=== PATIENT | male | born 1990 | race Caucasian/White ===

== ENCOUNTER 2018-08-01 19:23 | Emergency (ER) | payer MEDICAID ==
[2018-08-01 20:24] LABS: URINE SOURCE CLEAN C
[2018-08-01 20:26] LABS: URINE BILIRUBIN NEGATIVE (NEGATIVE); URINE BLOOD NEGATIVE (NEGATIVE); URINE GLUCOSE (UA) NEGATIVE (NEGATIVE); URINE KETONE NEGATIVE (NEGATIVE); URINE LEUKOCYTE ESTERASE NEGATIVE (NEGATIVE); URINE NITRATE NEGATIVE (NEGATIVE); URINE PH 5.5 (4.6 - 8.0); URINE PROTEIN NEGATIVE (NEGATIVE); URINE UROBILINOGEN 0.2 E.U./dL (0.2 - 1.0)
--- NOTE | 2018-08-01 20:41 | ED Physician Chart ---
ED Chief Complaint/HPI - Patient Information Date Seen:: 08/01/18 Time Seen:: 20:30 Chief Complaint:: dysuria History of Present Illness:: Patient's had mild dysuria for the last 4 days. He's also had nausea and sensation of throat tightness and upper abdominal pain. Denies urethral discharge or genital rash. Allergies:: Allergies Allergy/AdvReac Type Severity Reaction Status Date / Time cheese Allergy Verified 08/01/18 19:50 Vitals:: Vital Signs - 8 hr 08/01/18 19:54 Temp 98.7 F HR 83 RR 17 BP 126/89 O2 Sat % 97 Historian:: Patient ED Review of Systems - Review of Systems General/Constitutional: No fever, No chills Skin: No skin lesions Head: No headache Eyes: No loss of vision ENT: No earache, Other (throat tightness) Neck: No neck pain Cardio Vascular: No chest pain, Palpitations Pulmonary: No SOB GI: Nausea, Pain G/U: Dysuria Musculoskeletal: No bone or joint pain Endocrine: No polyuria Psychiatric: No prior psych history Hematopoietic: No bruising Allergic/Immuno: No urticaria Neurological: No focal symptoms Family Medical History - Family Member Mother History Unknown: Yes ED Physical Exam - Physical Examination General/Constitutional: Awake, Well-developed, well-nourished, Alert, No distress, GCS 15, Non-toxic appearing, Ambulatory Head: Atraumatic Eyes: Lids, conjuctiva normal, PERRL Skin: Nl inspection ENMT: External ears, nose nl, TM canals nl, Nasal exam nl, Lips, teeth, gums nl Other ENMT comments:: Tonsils enlarged and with mildly increased erythema; no exudate Neck: No nuchal rigidity Other Neck comments:: No cervical adenopathy Respiratory: Nl effort/Exclusion, Clear to Auscultation, No Wheeze/Rhonchi/Rales Cardio Vascular: RRR, No murmur, gallop, rubs GI: No tenderness/rebounding/guarding, No organomegaly, No hernia : No CVA tenderness Extremities: No edema Neuro/Psych: No focal deficits ED Labs/Radiology/EKG Results - Lab Results Results: Laboratory Results Urine Source CLEAN C 08/01/18 19:50 Urine Color STRAW 08/01/18 19:50 Urine Clarity CLEAR (CLEAR) 08/01/18 19:50 Urine pH 5.5 (4.6 - 8.0) 08/01/18 19:50 Ur Specific [place] 1.010 (1.005-1.030) 08/01/18 19:50 Urine Protein NEGATIVE mg/dL (NEGATIVE) 08/01/18 19:50 Urine Glucose (UA) NEGATIVE mg/dL (NEGATIVE) 08/01/18 19:50 Urine Ketones NEGATIVE mg/dL (NEGATIVE) 08/01/18 19:50 Urine Blood NEGATIVE (NEGATIVE) 08/01/18 19:50 Urine Nitrate NEGATIVE (NEGATIVE) 08/01/18 19:50 Urine Bilirubin NEGATIVE (NEGATIVE) 08/01/18 19:50 Urine Urobilinogen 0.2 E.U./dL (0.2 - 1.0) 08/01/18 19:50 Ur Leukocyte Esterase NEGATIVE (NEGATIVE) 08/01/18 19:50 ED Assessment - Assessment General Assessment: He complains of some throat tightness and his tonsils are enlarged with slightly increased erythema but it unlikely patient has set pharyngitis since there is no tonsillar exudate and no cervical adenopathy. Since patient has dysuria I will prescribe Vibramycin 100 mg twice a day for 1 week and give him the first dose in the emergency department. Patient's upper abdominal pain and nausea are most likely secondary to a viral syndrome. ED Septic Shock - . Is Septic Shock (SBP<90, OR Lactate>4 mmol\L) present?: No - <6hrs of presentation: Vital Signs: Vital Signs - 8 hr 08/01/18 19:54 Temp 98.7 F HR 83 RR 17 BP 126/89 O2 Sat % 97 ED Reassessment (Disposition) - Diagnosis Diagnosis:: Nongonococcal urethritis; acute viral syndrome - Aftercare/Follow up Instructions Aftercare/Follow-Up Instructions:: Refer to Discharge Instructions Medication Prescribed:: Vibramycin 100 mg twice a day for 1 week and Zofran 4 mg oral disintegrating tablet #10 to use one every 4-6 hours as necessary for nausea. - Patient Disposition Discharge/Transfer:: Home Condition at Disposition:: Stable, Unchanged
[2018-08-01 20:57] LABS: URINE CLARITY CLEAR (CLEAR); URINE COLOR STRAW; URINE MICROSCOPIC INDICATED? NO
== END 2018-08-01 22:05 | disposition home or self-care (01) ==
LOC: ER 19:23
DX: N34.1 Nonspecific urethritis (principal); B34.9 Viral infection, unspecified; Z91.018 Allergy to other foods
CPT/HCPCS: 81003-TC; Z7502